=== PATIENT | male | born 1970 | race Caucasian/White ===

== ENCOUNTER 2017-07-04 09:57 | Inpatient (IN) | payer SELFPAY ==
[~2017-07-04 09:57] MED LIST: Bupivacaine 0.5%/EPINEPHrine 1:200,000 50 ML MDV ONE; Meropenem 500 MG SDV ONE
[2017-07-04] MEDS: Dextrose 5%-Lactated Ringers 1,000 ML IV SCH ×2 (10:43→15:44)
[2017-07-04] MEDS ORDERED: fentaNYL 25 MCG/HR Transdermal Patch TRDERM SCH (10:45)
[2017-07-04] MEDS ORDERED: Acetaminophen 500 MG Tab PO ONE (10:45)
[2017-07-04] MEDS ORDERED: ceFAZolin 2 GM in Sodium Chloride 0.9% 50 ML IV ONE (10:45)
--- NOTE | 2017-07-04 11:10 | US ---
Abdomen Ltd HISTORY: Abdominal pain and bulge evaluate for hernia COMPARISON: CT scan 2007 FINDINGS: Hernia is seen in the mid abdomen superior to the umbilicus. This appears to contain fat no obvious bowel loops. No hernia is seen at the second site pointed out by the patient lateral to the left. Impression: Small hernia above the level of the umbilicus with neck measuring 7 mm seen on the second image. This does not appear to involve bowel loops.
[2017-07-04] MEDS ORDERED: Midazolam 1 MG/ML 2 ML SDV ONE (11:35)
[2017-07-04] MEDS ORDERED: Ondansetron 4 MG/2 ML SDV ONE (11:36)
[2017-07-04] MEDS ORDERED: Succinylcholine 200 MG/10 ML MDV ONE (11:36)
[2017-07-04] MEDS ORDERED: Propofol 200 MG/20 ML SDV ONE (11:36)
[2017-07-04] MEDS ORDERED: Rocuronium 50 MG/5 ML Vial ONE (11:36)
[2017-07-04] MEDS ORDERED: Neostigmine Methylsulfate 1 MG/ML 5 ML Syringe ONE (11:36)
[2017-07-04] MEDS ORDERED: Glycopyrrolate 0.2 MG/ML 5 ML MDV ONE (11:36)
[2017-07-04] MEDS ORDERED: Dexamethasone 4 MG/ML SDV ONE (11:36)
[2017-07-04] MEDS ORDERED: Naloxone 0.4 MG/ML SDV ONE (12:58)
[2017-07-04] MEDS ORDERED: Ketorolac 60 MG/2 ML SDV ONE (13:10)
[2017-07-04] MEDS ORDERED: HYDROmorphone/Normal Saline 15 MG/30 ML PCA IV PRN (13:15)
[2017-07-04] MEDS ORDERED: Naloxone 0.4 MG/ML SDV IV PRN (14:30)
[2017-07-04] MEDS ORDERED: Albuterol/Ipratropium 3.0-0.5 MG/3 ML Neb Soln INH PRN (14:33)
[2017-07-04] MEDS ORDERED: Ondansetron 4 MG/2 ML SDV IV PRN (14:36)
[2017-07-04] MEDS: VERIFY FENT PATCH TOP SCH ×2 (15:45→20:23)
[2017-07-04] MEDS: Albuterol/Ipratropium 3.0-0.5 MG/3 ML Neb Soln INH SCH ×2 (15:50→20:07)
[2017-07-04] MEDS: Ketorolac 10 MG Tab PO SCH (19:44)
[2017-07-04] MEDS: ceFAZolin 2 GM in Sodium Chloride 0.9% 50 ML IV SCH (19:45)
[2017-07-04] MEDS: Acetaminophen/oxyCODONE 325-5 MG Tab PO PRN (19:45)
[2017-07-05] MEDS: Ketorolac 10 MG Tab PO SCH ×3 (00:25→08:06)
[2017-07-05] MEDS: Acetaminophen/oxyCODONE 325-5 MG Tab PO PRN ×3 (00:25→08:06)
[2017-07-05] MEDS: Dextrose 5%-Lactated Ringers 1,000 ML IV SCH (01:37)
[2017-07-05] MEDS: ceFAZolin 2 GM in Sodium Chloride 0.9% 50 ML IV SCH (03:59)
[2017-07-05 08:09] VITALS: BP 123/72
[2017-07-05] MEDS ORDERED: Magnesium Hydroxide 400 MG/5 ML Susp 30 ML Cup PO ONE (08:45)
[2017-07-05] MEDS ORDERED: Lisinopril 20 MG Tab PO SCH (09:00)
--- NOTE | 2017-07-08 10:34 | OR ---
DATE OF PROCEDURE: 07/04/2017 PREOPERATIVE DIAGNOSIS: Recurrent incarcerated incisional hernia. POSTOPERATIVE DIAGNOSIS: Recurrent incarcerated incisional hernia. PROCEDURE: Open repair of recurrent incarcerated incisional hernia with mesh ([id number]). ANESTHESIA: General. INDICATION FOR PROCEDURE: This is a 47-year-old presenting with some findings consistent with a recurrent incisional hernia. He had an ultrasound this morning, which confirmed an incisional hernia in the midline, more or less above the previous mesh repair. There was some question whether that be some hernias in the left upper abdomen, but by ultrasound, these appeared not to be hernias, some areas of some increased fatty accumulation and clinically probably associated with some abdominal wall strain. Plan is to proceed with repair of the recurrent hernia with a mesh technique. Potential risks including bleeding, infection, and recurrence of the hernia once again were all reviewed, and the patient wishes to proceed. DETAILS OF PROCEDURE: The patient was taken to the operating room. After general endotracheal anesthesia was induced, the abdomen was prepped and draped. The area which I had confirmed to overlie the hernia was then incised with a vertical midline incision, and this was carried down through the skin and subcutaneous tissue. A well-defined hernia was then identified, and this was dissected down to the level of the surrounding facial area. This included some incarcerated omentum and preperitoneal fat, which was then amputated more or less flush with the fascia. The fascial defect itself measured around 1 cm. A large mesh plug was then placed into the defect and then affixed to the underside of the fascia medially, superiorly, laterally, and inferiorly with horizontal mattress sutures of 0 Vicryl stitch, fixing the mesh to a point underlying the fascia, perhaps 1 cm away from the actual fascial defect. The fascial defect was then closed with a transverse orientation using a [id number] stitch of #1 Vicryl stitch. Subcutaneous tissue was then approximated with some 3-0 Vicryl stitch and the skin with filomena. Dressing was applied. The patient was taken to the recovery room in satisfactory condition. Mario De León MD /[id number]
--- NOTE | 2017-07-08 10:56 | DISCH ---
FINAL DIAGNOSIS: Incarcerated incisional hernia. SECONDARY DIAGNOSES: History of arthritis with psoriasis, history of hypertension, history of gout, history of opioid dependence. OPERATIVE PROCEDURE: This was done on 07/04/2017, open repair of recurrent incarcerated incisional hernia with mesh. SUMMARY: This is a 47-year-old presenting with a recurrent incisional hernia. It is located in the midline above the previous level of mesh placement. He was thought to perhaps have 2 other sites of hernia in the left abdominal wall. Preoperative ultrasound was done, which confirmed the midline hernia and failed to show any hernias in the left upper abdomen. These were probably areas of some abdominal strain related to his obesity, as well as possible pockets of fat or lipomas. At any rate, the single hernia was repaired as an open approach with mesh plug technique, on 07/04/2017. Postoperatively, no major problems were noted. He will be sent home on a regular diet. He was given a prescription for Percocet 5/325 mg 1 to 2 tabs q.4 hours p.r.n. pain, #50. He has the 25 mcg per hour fentanyl patch on, which he will be instructed to remove on 07/08/2017 and hold the Tylenol No. 3 that he is normally on, while on the Percocet, and will receive two doses of milk of magnesia to take p.r.n. He will have an appropriate level of activity, as well as maintaining any pressure over the hernia repair site, and follow up will be with Lilliam Alcocer at [facility] on 07/14/2017.
== END 2017-07-05 08:53 | disposition home or self-care (01) | DRG 354 ==
LOC: JP.MS 09:57 → JP.SDS 09:58 → EDSTATUS 12:45 → JP.MS 13:10
PROVIDERS: ADMIT Surgery; ATTEND Surgery
PROC: 0WUF0JZ Supplement Abdominal Wall with Synthetic Substitute, Open Approach (ICD-10-PCS; principal; 2017-07-04)
DX: K43.0 Incisional hernia with obstruction, without gangrene (principal); F11.20 Opioid dependence, uncomplicated; Z68.42 Body mass index [BMI] 45.0-49.9, adult; I10 Essential (primary) hypertension; K21.9 Gastro-esophageal reflux disease without esophagitis; M19.90 Unspecified osteoarthritis, unspecified site; Z98.1 Arthrodesis status; F17.210 Nicotine dependence, cigarettes, uncomplicated; E66.9 Obesity, unspecified; Z91.040 Latex allergy status; Z88.8 Allergy status to other drugs, medicaments and biological substances
CPT/HCPCS: 36415; 76705; 76705-26; 80053; 83735; 84100; 85027; 88302; A9270-GY; C1781; J0330; J0690; J1100; J1170; J1885; J2185; J2250; J2310; J2405; J2704; J2710; J3010; J7042; J7050; J7620

== ENCOUNTER 2019-10-04 07:27 | Day surgery (SDC) | payer OTHER ==
[2019-10-04] MEDS ORDERED: ceFAZolin 2 GM in Premix Bag 1 BAG IV ONE (08:00)
[2019-10-04] MEDS ORDERED: ceFAZolin 2 GM in Sodium Chloride 0.9% 50 ML IV ONE (08:00)
[2019-10-04] MEDS ORDERED: Acetaminophen 500 MG Tab PO ONE (08:00)
[2019-10-04] MEDS ORDERED: Rocuronium 50 MG/5 ML Vial ONE (08:11)
[2019-10-04] MEDS ORDERED: Glycopyrrolate 0.2 MG/ML 5 ML MDV ONE (08:11)
[2019-10-04] MEDS ORDERED: Neostigmine Methylsulfate 1 MG/ML 5 ML Syringe ONE (08:11)
[2019-10-04] MEDS ORDERED: Succinylcholine 200 MG/10 ML MDV ONE (08:11)
[2019-10-04] MEDS ORDERED: Dexamethasone 4 MG/ML SDV ONE (08:11)
[2019-10-04] MEDS ORDERED: Ondansetron 4 MG/2 ML SDV ONE (08:11)
[2019-10-04] MEDS ORDERED: Propofol 200 MG/20 ML SDV ONE (08:11)
[2019-10-04] MEDS ORDERED: fentaNYL 250 MCG/5 ML SDV ONE ×2 (08:12→09:46)
[2019-10-04] MEDS: Dextrose 5%-Lactated Ringers 1,000 ML IV SCH ×2 (08:22→21:34)
[2019-10-04] MEDS ORDERED: Albuterol/Ipratropium 3.0-0.5 MG/3 ML Neb Soln NEB ONE (08:31)
[2019-10-04] MEDS ORDERED: Ketamine 500 MG/5 ML MDV IV SCH (08:45)
[2019-10-04] MEDS ORDERED: hydrOXYzine HCl 100 MG/2 ML SDV IM PRN (11:24)
[2019-10-04] MEDS ORDERED: Ondansetron 4 MG/2 ML SDV IVPUSH PRN (11:24)
[2019-10-04] MEDS ORDERED: Cyclobenzaprine 10 MG Tab PO PRN (11:25)
[2019-10-04] MEDS: Acetaminophen/oxyCODONE 325-5 MG Tab PO PRN ×3 (11:33→20:49)
[2019-10-04] MEDS: ceFAZolin 2 GM in Sodium Chloride 0.9% 50 ML IV SCH ×3 (17:03→23:07)
[2019-10-05] MEDS: Acetaminophen/oxyCODONE 325-5 MG Tab PO PRN ×3 (01:37→11:01)
[2019-10-05 07:21] VITALS: PULSE 74
[2019-10-05] MEDS ORDERED: Famotidine 20 MG Tab PO SCH (07:30)
[2019-10-05] MEDS: ceFAZolin 2 GM in Sodium Chloride 0.9% 50 ML IV SCH (07:31)
[2019-10-05] MEDS ORDERED: Hydrochlorothiazide 25 MG Tab PO SCH (09:00)
[2019-10-05] MEDS ORDERED: Losartan 50 MG Tab PO SCH (09:00)
[2019-10-05] MEDS ORDERED: Enoxaparin 40 MG/0.4 ML Syringe SUBCUT SCH (09:00)
[2019-10-05 10:52] VITALS: BP 142/69
--- NOTE | 2019-10-05 15:24 | DISCH ---
FINAL DIAGNOSES: 1. Incarcerated recurrent incisional hernia. 2. Subfascial abdominal wall lipoma. 3. Morbid obesity. 4. History of gastroesophageal reflux disease. 5. History of hypertension. OPERATIVE PROCEDURES: This was done on 10/04/2019, limited laparotomy with; 1. Repair of incarcerated recurrent incisional hernia with mesh. 2. Excision of subfascial abdominal wall lipoma. HOSPITAL COURSE: This is a 49-year-old male presenting with a recurrent hernia. He has had multiple hernia repairs in the past. It is in the central abdomen and somewhat above the umbilicus. At the time of exploration, he was noted to have a 5.2 cm subfascial lipoma and also had a small incarcerated hernia, which was repaired with mesh plug technique. Postoperatively, he has done well. He will be discharged home on his usual medications plus Percocet 5/325 one to two tabs q.4 hours p.r.n. pain, #42. He will be following up with Dr. De León in [facility] on 10/13/2019. He will be instructed not to do any lifting more than 10 pounds for 4 weeks postoperatively.
--- NOTE | 2019-10-08 10:57 | OR ---
DATE OF PROCEDURE: 10/04/2019 SURGEON: Mario De León MD PREOPERATIVE DIAGNOSIS: Recurrent incarcerated incisional hernia. POSTOPERATIVE DIAGNOSES: 1. 2. Recurrent incarcerated incisional hernia. 3. Subfascial lipoma of the abdominal wall. OPERATIVE PROCEDURES: 1. Open repair of recurrent incarcerated incisional hernia with mesh ([id number]). 2. Excision of subfascial abdominal wall lipoma ([id number]). ANESTHESIA: General. ASSISTANTS: Lilliam Alcocer PA-C; and MICHELLE Pulido3. INDICATION FOR PROCEDURE: This is a 49-year-old with multiple previous abdominal wall hernia repairs, presenting with a recurrence. This is located in the left midabdomen, going over the previous transverse incisions and does not appear to be entirely reducible. The plan is to proceed with an open repair of this with additional mesh to be placed. Potential risks including bleeding, infection, recurrence of the hernia, and possible injury to underlying viscera were all reviewed, and the patient wishes to proceed. DETAILS OF PROCEDURE: The patient was taken to the operating room and placed in a supine position. After general endotracheal anesthesia was induced, a Lopez catheter was inserted which was removed at the end of the procedure, and the abdomen was prepped and draped. The previous transverse incision was then reused and carried down through the skin and subcutaneous tissue. Just inferior to this, the area of herniation could be identified. During the course of the dissection, in a plane behind Camper fascia, i.e., in the subfascial plane, a 5.2 cm lipoma was identified and this was excised and sent as a separate specimen. The hernia sac was then dissected down to the level of the fascia. This contained some incarcerated preperitoneal fat and omentum, some of which was excised. The fascial opening, at this time, was fairly small, around 1 cm. Given this, a medium mesh plug was placed into the defect and sutured on 4 sides with horizontal mattress sutures of 0 Vicryl stitch, fixing the mesh underneath the fascial edges. Primary fascial closure was then accomplished with #1 Vicryl stitch closing this with a transverse orientation. The subcutaneous tissue was then approximated with 2 layers of 3 and 4-0 Vicryl stitch, and the skin with filomena. Bilateral transversus abdominis plane blocks were then placed with ultrasound guidance, and the wound also had been anesthetized with 0.5% Marcaine mixed with lidocaine. The patient was taken to the recovery room in satisfactory condition. There were no evident complications. Physician creative assistant, Lilliam Alcocer, played an essential role in assisting in this case, helping to position the patient, retract structures as needed, as well as suturing and cutting sutures when indicated, as well as applying filomena. Her presence improved patient's safety and decreased the operative time. Mario De León MD Job #: [id number]
== END 2019-10-05 12:32 ==
LOC: UNDOADMIN 07:27 → JP.MS 07:27 → JP.SDS 07:27 → EDSTATUS 08:00 → JP.MS 10:30 → UNDODISIN 10-05 11:50 → JP.SDS 10-05 12:32 → UNDODISIN 10-05 12:32
PROVIDERS: ATTEND Surgery
DX: K43.0 Incisional hernia with obstruction, without gangrene (principal); D17.79 Benign lipomatous neoplasm of other sites; K21.9 Gastro-esophageal reflux disease without esophagitis; I10 Essential (primary) hypertension; L40.50 Arthropathic psoriasis, unspecified; M10.9 Gout, unspecified; E66.01 Morbid (severe) obesity due to excess calories; Z91.040 Latex allergy status; Z79.891 Long term (current) use of opiate analgesic; Z90.49 Acquired absence of other specified parts of digestive tract; Z79.899 Other long term (current) drug therapy; Z88.8 Allergy status to other drugs, medicaments and biological substances; Z68.42 Body mass index [BMI] 45.0-49.9, adult
CPT/HCPCS: 88302; 88304; 94640; 94762; A9270-GY; C1781; J0171; J0330; J0690; J1100; J1650; J2020; J2185; J2405; J2704; J2710; J2795; J3010; J3490; J7042; J7050; J7620-GY

== ENCOUNTER 2020-10-23 16:55 | Emergency (ER) | payer OTHER ==
[2020-10-23 17:10] VITALS: BP 144/78; PULSE 95
--- NOTE | 2020-10-23 17:32 | EDM.PDOC ---
ED HPI GENERAL MEDICAL PROBLEM - General Chief Complaint: General Stated Complaint: BILATERAL LEG PAIN Time Seen by Provider: 10/23/20 17:25 Source of Information: Reports: Patient, Family History Limitations: Reports: No Limitations - History of Present Illness INITIAL COMMENTS - FREE TEXT/NARRATIVE: 50-year-old male that saw his primary care provider today with persistent leg pain, was found to have worsening lower extremity edema, increased leg pain, and shortness of breath with activity and was sent to the emergency room to rule out DVT or PE. He has no fevers, chills, cough, nausea or vomiting. No recent trauma. He is very overweight and is a smoker. No history of DVT in the past. Onset: Gradual Duration: Week(s): (Symptoms have been worsening for weeks) Location: Reports: Lower Extremity, Left, Lower Extremity, Right Associated Symptoms: Reports: Shortness of Breath (Shortness of breath worsens towards the end of the day) Bilateral Leg Pain Score (Numeric/FACES): 7 - Related Data Allergies Allergy/AdvReac Type Severity Reaction Status Date / Time celecoxib [From Celebrex] Allergy Hives Verified 10/23/20 17:13 gabapentin Allergy Hives Verified 10/23/20 17:13 indomethacin Allergy Hives Verified 10/23/20 17:13 latex Allergy Rash Verified 10/23/20 17:13 Home Meds: Home Meds Acetaminophen with Codeine [Tylenol with Codeine #3 Tablet] 1 - 2 tab PO Q6H PRN 07/02/17 [History] Losartan [Cozaar] 100 mg PO DAILY 09/29/19 [History] Nabumetone [Relafen] 500 mg PO DAILY 09/29/19 [History] hydroCHLOROthiazide [Hydrochlorothiazide] 25 mg PO DAILY 09/29/19 [History] Famotidine [Pepcid] 20 mg PO DAILY 10/23/20 [History] amLODIPine [Norvasc] 5 mg PO DAILY 10/23/20 [History] Past Medical History HEENT History: Reports: Impaired Vision Cardiovascular History: Reports: Hypertension Gastrointestinal History: Reports: GERD Musculoskeletal History: Reports: Arthritis, Back Pain, Chronic, Gout, Neck Pain, Chronic, Osteoarthritis Neurological History: Reports: None Endocrine/Metabolic History: Reports: Obesity/BMI 30+ Dermatologic History: Reports: Psoriasis - Infectious Disease History Infectious Disease History: Reports: Chicken Pox - Past Surgical History HEENT Surgical History: Reports: None Cardiovascular Surgical History: Reports: None GI Surgical History: Reports: Appendectomy, Cholecystectomy, EGD, Hernia, Inguinal, Hernia Repair/Other Endocrine Surgical History: Reports: None Neurological Surgical History: Reports: Discectomy, Spinal Fusion Musculoskeletal Surgical History: Reports: Arthroscopic Knee, Other (See Below) Other Musculoskeletal Surgeries/Procedures:: Spinal fusion Dermatological Surgical History: Reports: None Social & Family History - Family History Family Medical History: No Pertinent Family History - Caffeine Use Caffeine Use: Reports: Coffee, Soda ED ROS GENERAL - Review of Systems Review Of Systems: See Below Constitutional: Reports: Malaise. Denies: Fever, Chills HEENT: Denies: Vision Change Respiratory: Reports: Shortness of Breath (With activity especially later in the day) Cardiovascular: Denies: Chest Pain, Palpitations GI/Abdominal: Denies: Abdominal Pain, Nausea, Vomiting Musculoskeletal: Reports: Other (Significant lower extremity pain bilaterally, especially the right, he has a knee immobilizer on the right leg) Skin: Denies: Erythema Neurological: Denies: Paresthesia ED EXAM, GENERAL - Physical Exam Exam: See Below Exam Limited By: No Limitations General Appearance: Alert, No Apparent Distress Respiratory/Chest: No Respiratory Distress, Lungs Clear, Other (O2 sats are normal on room air) Cardiovascular: Regular Rate, Rhythm. No: Tachycardia GI/Abdominal: Other (Morbidly obese, no tenderness to palpation) Extremities: Other (Both legs are extremely obese, leathery skin and underlying edema. There is tenderness to palpation in both thighs and both calves.) Course - Vital Signs Last Recorded V/S: Last Vital Signs Temp 98 F 10/23/20 17:24 Pulse 95 10/23/20 17:24 Resp 12 10/23/20 17:24 BP 144/78 H 10/23/20 17:24 Pulse Ox 96 10/23/20 17:24 - Orders/Labs/Meds Orders: Active Orders 24 hr Category Date Time Status VL Duplex Lwr Ext Veins Comp [US] Stat Exams 10/23/20 17:39 Taken Labs: Laboratory Tests 10/23/20 10/23/20 10/23/20 Range/Units 17:52 17:52 17:52 WBC 7.0 (4.5-11.0) K/uL RBC 4.91 (4.30-5.90) M/uL Hgb 14.3 D (12.0-15.0) g/dL Hct 43.8 (40.0-54.0) % MCV 89 (80-98) fL MCH 29 (27-31) pg MCHC 33 (32-36) % Plt Count 162 (150-400) K/uL Neut % (Auto) 51 (36-66) % Lymph % (Auto) 35 (24-44) % Blair % (Auto) 10 H (2-6) % Eos % (Auto) 4 (2-4) % Baso % (Auto) 1 (0-1) % D-Dimer, Quantitative 293.60 (0.0-500.0) ng/mL Sodium 139 L (140-148) mmol/L Potassium 4.0 (3.6-5.2) mmol/L Chloride 103 (100-108) mmol/L Carbon Dioxide 26 (21-32) mmol/L Anion Gap 14.0 (5.0-14.0) mmol/L BUN 24 H (7-18) mg/dL Creatinine 1.2 (0.8-1.3) mg/dL Est Cr Clr Drug Dosing 72.83 mL/min Estimated GFR (MDRD) > 60 (>60) Glucose 115 H (74-106) mg/dL Calcium 9.3 (8.5-10.1) mg/dL - Re-Assessments/Exams Free Text/Narrative Re-Assessment/Exam: 10/23/20 17:44 CBC, BMP and D-dimer were obtained and bilateral leg ultrasounds were ordered. This patient will need a PE study if D-dimer is elevated or leg studies are positive for clots. 10/23/20 18:49 Ultrasound of the lower extremities were negative and the D-dimer was normal. Patient remained stable, electrolytes were normal as well as white count and hemoglobin. Patient will follow up with Dr. Farooq for reevaluation. Departure - Departure Time of Disposition: 18:57 Disposition: Home, Self-Care 01 Clinical Impression: Lower extremity pain, bilateral, Lower extremity edema - Discharge Information Instructions: Pain Without a Known Cause, Edema, [id number] Referrals: Alex Farooq MD [Primary Care Provider] - Forms: ED Department Discharge Care Plan Goals: It is very important that you increase your activity and attempt to lose weight. Follow-up with Dr. Farooq regarding any future treatment or evaluation of your symptoms. Sepsis Event Note (ED) - Focused Exam Vital Signs: Vital Signs Temp Pulse Resp BP Pulse Ox 10/23/20 17:24 98 F 95 12 144/78 H 96 10/23/20 17:08 98 F 95 12 144/78 H 96 - My Orders Last 24 Hours: My Active Orders 10/23/20 17:39 VL Duplex Lwr Ext Veins Comp [US] Stat - Assessment/Plan Last 24 Hours: My Active Orders 10/23/20 17:39 VL Duplex Lwr Ext Veins Comp [US] Stat
--- NOTE | 2020-10-24 09:41 | US ---
VL Duplex Lwr Ext Veins Comp BILATERAL HISTORY: Bilateral leg swelling FINDINGS: The deep veins of both lower extremities demonstrate normal augmentation and compressibility. No evidence for deep venous thrombosis. IMPRESSION: Normal bilateral lower extremity venous Doppler study.
== END 2020-10-23 18:56 | disposition home or self-care (01) ==
LOC: JP.ED 16:55
DX: M79.662 Pain in left lower leg (principal); M79.661 Pain in right lower leg; R60.0 Localized edema; I10 Essential (primary) hypertension; K21.9 Gastro-esophageal reflux disease without esophagitis; M19.90 Unspecified osteoarthritis, unspecified site; E66.01 Morbid (severe) obesity due to excess calories; Z68.43 Body mass index [BMI] 50.0-59.9, adult; Z88.1 Allergy status to other antibiotic agents; Z88.6 Allergy status to analgesic agent; Z91.040 Latex allergy status; Z79.899 Other long term (current) drug therapy
CPT/HCPCS: 36415; 80048; 85025; 85379; 93970; 93970-26; 99285-25

== ENCOUNTER 2022-05-26 19:25 | Emergency (ER) | payer OTHER ==
[2022-05-26 19:44] VITALS: BP 144/92; PULSE 106
== END 2022-05-26 20:39 | disposition home or self-care (01) ==
LOC: JP.ED 19:25
DX: R06.2 Wheezing (principal); H66.92 Otitis media, unspecified, left ear; B34.9 Viral infection, unspecified; K21.9 Gastro-esophageal reflux disease without esophagitis; I10 Essential (primary) hypertension; F17.210 Nicotine dependence, cigarettes, uncomplicated; E66.9 Obesity, unspecified; Z68.43 Body mass index [BMI] 50.0-59.9, adult; Z88.1 Allergy status to other antibiotic agents; Z88.8 Allergy status to other drugs, medicaments and biological substances; Z91.040 Latex allergy status; Z79.899 Other long term (current) drug therapy; Z90.49 Acquired absence of other specified parts of digestive tract; Z20.822 Contact with and (suspected) exposure to COVID-19
CPT/HCPCS: 99282; 99283; U0002

== ENCOUNTER 2023-07-15 09:48 | Inpatient (IN) | payer OTHER ==
[~2023-07-15 09:48] MED LIST changes: +Bupivacaine 0.5% 50 ML MDV ONE; -Bupivacaine 0.5%/EPINEPHrine 1:200,000 50 ML MDV ONE; +Dexamethasone 4 MG/ML SDV ONE; +Dextrose 5%-Lactated Ringers 1,000 ML IV SCH; +Enoxaparin 30 MG/0.3 ML Syringe SUBCUT ONE; +Glycopyrrolate 0.2 MG/ML 5 ML MDV ONE; +Ketamine 21 MG in Sodium Chloride 0.9% 19.79 ML IV SCH; +Ketamine 500 MG/5 ML MDV IV SCH; +Lidocaine 1% with EPINEPHrine 1:100,000 50 ML MDV ONE; -Meropenem 500 MG SDV ONE; +Neostigmine Methylsulfate 1 MG/ML 5 ML Syringe ONE; +Ondansetron 4 MG/2 ML SDV ONE; +Propofol 200 MG/20 ML SDV ONE; +Rocuronium 50 MG/5 ML Vial ONE; +Succinylcholine 200 MG/10 ML MDV ONE; +ceFAZolin 2 GM in Premix Bag 1 BAG IV ONE; +fentaNYL 250 MCG/5 ML SDV ONE
[2023-07-15] MEDS ORDERED: fentaNYL 50 MCG/ML SDV ONE (12:33)
[2023-07-15] MEDS ORDERED: Midazolam 1 MG/ML 2 ML SDV ONE (12:33)
[2023-07-15] MEDS ORDERED: Propofol 200 MG/20 ML SDV ONE (12:33)
[2023-07-15] MEDS ORDERED: Scopolamine 1.5 MG Transdermal Patch ONE (12:42)
[2023-07-15] MEDS ORDERED: fentaNYL 250 MCG/5 ML SDV ONE (13:01)
[2023-07-15] MEDS: Meropenem 500 MG SDV ONE ×2 (13:08→13:44)
[2023-07-15] MEDS ORDERED: Lactated Ringers 1,000 ML ONE (13:18)
[2023-07-15] MEDS ORDERED: Linezolid 600 MG/300 ML Premix Bag IRR ONE (13:44)
[2023-07-15] MEDS: HYDROmorphone/Normal Saline 6 MG/30 ML PCA Vial IV PRN ×2 (14:11→23:16)
[2023-07-15] MEDS ORDERED: Dextrose 5%-Lactated Ringers 1,000 ML IV SCH (15:00)
[2023-07-15] MEDS ORDERED: Naloxone 0.4 MG/ML SDV IV PRN (15:00)
[2023-07-15] MEDS: Dextrose 5%-Lactated Ringers 1,000 ML IV SCH (15:15)
[2023-07-15] MEDS ORDERED: Labetalol 20 MG/4 ML Syringe IVPUSH PRN (16:00)
[2023-07-15] MEDS ORDERED: hydrOXYzine HCL 100 MG/2 ML SDV IM PRN (16:00)
[2023-07-15] MEDS ORDERED: Metoclopramide 10 MG/2 ML SDV IVPUSH PRN (16:00)
[2023-07-15] MEDS ORDERED: Acetaminophen 500 MG Tab PO PRN (16:00)
[2023-07-15] MEDS ORDERED: cefOXitin 2 GM in Sodium Chloride 0.9% 50 ML IV SCH (16:00)
[2023-07-15] MEDS ORDERED: Ondansetron 4 MG/2 ML SDV IVPUSH PRN (16:00)
[2023-07-15] MEDS ORDERED: diphenhydrAMINE 50 MG/ML SDV IVPUSH PRN (16:00)
[2023-07-15] MEDS ORDERED: Cyclobenzaprine 10 MG Tab PO PRN (16:08)
[2023-07-15] MEDS ORDERED: MVI, Adult with Vitamin K 10 ML, Thiamine 200 MG, Zinc/Copper/Manganese/Selenium 1 ML i... IV SCH ×4 (17:00)
[2023-07-15] MEDS ORDERED: Pantoprazole 40 MG Vial IVPUSH SCH (17:00)
[2023-07-15] MEDS: Ibuprofen 600 MG Tab PO SCH ×2 (17:47→22:47)
[2023-07-15] MEDS: ceFAZolin 2 GM in Premix Bag 1 BAG IV SCH (19:39)
[2023-07-15] MEDS: Albuterol/Ipratropium 3.0-0.5 MG/3 ML Neb Soln INH SCH (20:30)
[2023-07-15] MEDS ORDERED: Acetaminophen 500 MG Tab PO SCH (21:00)
[2023-07-15] MEDS: Acetaminophen 500 MG Tab PO SCH (22:47)
[2023-07-16] MEDS: Dextrose 5%-Lactated Ringers 1,000 ML IV SCH (01:06)
[2023-07-16] MEDS: ceFAZolin 2 GM in Premix Bag 1 BAG IV SCH (03:59)
[2023-07-16] MEDS: Ibuprofen 600 MG Tab PO SCH (05:33)
[2023-07-16] MEDS: Acetaminophen 500 MG Tab PO SCH (05:33)
[2023-07-16 05:54] VITALS: BP 123/63; PULSE 80
[2023-07-16] MEDS: Albuterol/Ipratropium 3.0-0.5 MG/3 ML Neb Soln INH SCH (07:14)
[2023-07-16] MEDS ORDERED: HYDROmorphone 2 MG Tab PO PRN (07:22)
[2023-07-16] MEDS ORDERED: Ibuprofen 600 MG Tab PO PRN (07:24)
[2023-07-16] MEDS ORDERED: Dextrose 5%-Lactated Ringers 1,000 ML IV SCH (07:30)
[2023-07-16] MEDS ORDERED: Losartan 50 MG Tab PO SCH (09:00)
[2023-07-16] MEDS ORDERED: Celecoxib 200 MG Cap PO SCH (09:00)
[2023-07-16] MEDS ORDERED: SCOPOLAMINE PATCH CHECK TOP SCH (09:00)
[2023-07-16] MEDS ORDERED: Hydrochlorothiazide 25 MG Tab PO SCH (09:00)
[2023-07-16] MEDS ORDERED: Bisacodyl 5 MG Tab PO SCH (09:00)
[2023-07-16] MEDS ORDERED: Docusate Sodium 100 MG Cap PO SCH (09:00)
== END 2023-07-16 10:30 | disposition home or self-care (01) | DRG 330 ==
LOC: JP.SDS 09:48 → JP.MS 14:30
PROVIDERS: ADMIT Surgery; ATTEND Surgery
PROC: 0DB80ZZ Excision of Small Intestine, Open Approach (ICD-10-PCS; principal; 2023-07-15)
PROC: 0WUF0JZ Supplement Abdominal Wall with Synthetic Substitute, Open Approach (ICD-10-PCS; 2023-07-15)
PROC: 0WPF0JZ Removal of Synthetic Substitute from Abdominal Wall, Open Approach (ICD-10-PCS; 2023-07-15)
DX: K43.0 Incisional hernia with obstruction, without gangrene (principal); Z68.43 Body mass index [BMI] 50.0-59.9, adult; E66.01 Morbid (severe) obesity due to excess calories; G89.29 Other chronic pain; K21.9 Gastro-esophageal reflux disease without esophagitis; I10 Essential (primary) hypertension; M10.9 Gout, unspecified; Z79.891 Long term (current) use of opiate analgesic; Z79.899 Other long term (current) drug therapy; Z90.49 Acquired absence of other specified parts of digestive tract; Z98.890 Other specified postprocedural states; Z98.1 Arthrodesis status; Z88.8 Allergy status to other drugs, medicaments and biological substances; Z91.040 Latex allergy status
CPT/HCPCS: 94640; A9270-GY; C1713; C1781; C9113; J0131; J0171; J0330; J0690; J1100; J1170; J1650; J2020; J2185; J2250; J2405; J2704; J2710; J2795; J3010; J3411; J3490; J7120; J7121; J7620